=== PATIENT | female | born 1975 | race Caucasian/White ===

== ENCOUNTER 2016-11-23 13:03 | Emergency (ER) | payer SELFPAY ==
[2016-11-23 13:14] VITALS: BP 127/88; PULSE 87; RESP 17; TEMP 98.2; O2SAT 98
--- NOTE | 2016-11-23 13:43 | EDPHY ---
HPI/HX/ROS/PE/MDM Narrative: CHIEF COMPLAINT: Chronic back pain HPI: The patient is a 41-year-old female with a history of chronic back pain. She recently moved here from [place]. She states she is in the process of trying to establish an alternative medicine specialist for her chronic back pain. She states she would like a prescription of Percocet and/or Neurontin to help her bridge until she can be seen by different practitioner. She denies fever, numbness, weakness or incontinence. REVIEW OF SYSTEMS: Aside from elements discussed in the HPI, a comprehensive 10-point review of systems was reviewed and is negative. PMH: Chronic back pain. SOCIAL HISTORY: Recently moved from [place] with her boyfriend. PHYSICAL EXAM: General:Patient is alert, in no acute distress. ENT:Eyes are normal to inspection. ENT inspection normal. Neck: Normal inspection. Full range of motion. Respiratory:No respiratory distress. Breath sounds normal bilaterally. Cardiovascular: Regular rate and rhythm. Strong peripheral pulses. Normal cap refill. Abdomen:The abdomen is nontender to palpation. There are no peritoneal signs. There are normal bowel sounds. Back: Normal to inspection. No tenderness to palpation. Skin: Normal color. No rash. Warm and dry. Extremities: Normal appearance. Full range of motion. Neuro: Oriented x3. Normal motor function. Normal sensory function. ED Course: I agreed to provide the patient with prescription for Neurontin. Medical decision making: The patient presents with chronic back pain thought evidence of spinal cord emergency such as cauda equina or epidural abscess. General Time Seen by Provider: 11/23/16 13:17 Initial Vital Signs: Initial Vital Signs Temperature (C) 36.8 C 11/23/16 13:11 Heart Rate 87 11/23/16 13:11 Respiratory Rate 17 11/23/16 13:11 Blood Pressure 127/88 H 11/23/16 13:11 O2 Sat (%) 98 11/23/16 13:11 O2 Delivery Mode Room Air Allergies/Adverse Reactions: No Known Allergies Allergy (Unverified 11/23/16 13:11) Home Medications: Medication Instructions Recorded Gabapentin [Neurontin 300 MG (*)] 300 mg PO TID #30 cap 11/23/16 Neurontin 11/23/16 Percocet 5/325 (*) 11/23/16 Departure - Departure Disposition: Home, Routine, Self-Care Clinical Impression: Chronic back pain Condition: Good Instructions: Chronic Back Pain (ED) Additional Instructions: Followup with a erosion control specialist within one week. Return to the emergency department for severe pain, fever, numbness, difficulty walking, change in location or nature of pain or other concerns. Use ibuprofen and Tylenol as directed. Try using a heating pad. Referrals: NONE *PRIMARY CARE P,. [Primary Care Provider] - As per Instructions Prescriptions: Gabapentin [Neurontin 300 MG (*)] 300 mg PO TID #30 cap
== END 2016-11-23 13:55 | disposition home or self-care (01) ==
DX: M54.9 Dorsalgia, unspecified (principal); G89.29 Other chronic pain